=== PATIENT | female | born 1955 | race Caucasian/White ===

== ENCOUNTER 2023-01-19 12:11 | Emergency (ER) | payer MEDICARE, OTHER ==
[~2023-01-19] VITALS: Ht 167.6 cm; Wt 56.8 kg
[~2023-01-19 12:11] MED LIST: ALEVE220 M2 PO; ANASTROZOLE1 MG PO; LOSARTAN POTASS50 MG PO; NAPROSYN500 MG PO; NO HOME MEDS; PERCOCET 10/31 COMBO PO
[2023-01-19] MEDS ORDERED: EQ PAIN RELIEV325 MG PO (12:16)
[2023-01-19 12:38] VITALS: BP 182/90
[2023-01-19 12:46] VITALS: BP 174/90
[2023-01-19 13:13] LABS: BASO% 0.8 % (0-3); EOS% 0.5 % (0-8); HEMATOCRIT 39.6 % (37.0-47.0); IMMATURE GRANULOCYTES 0.2 % (0.0-5.0); LYMPH% 24.2 % (15-41); MEAN CELL VOLUME 98.3 fL CALC (80.0-100.0); MEAN CORPUSCULAR HGB 32.3 pG CALC (26.0-32.0); MEAN CORPUSCULAR HGB CONC 32.8 g/dL CAL (32.0-36.0); MONO% 13.2 % (2-13); NEUT# 3.69 thou/uL (2.00-7.15); NEUT% 61.1 % (42-76); RED BLOOD COUNT 4.03 mill/uL (4.20-5.60); RED CELL DISTRI WIDTH 12.5 % (11.5-15.5)
[2023-01-19 13:24] LABS: ALBUMIN 4.7 g/dL (3.2-5.0); ALKALINE PHOSPHATASE 50 u/l (38-126); ANION GAP 13 (6-22 (CALC)); BUN 10 mg/dL (8-23); BUN/CREATININE RATIO 15 (12-20 (CALC)); CARBON DIOXIDE 27 mmol/l (22-30); CHLORIDE 97 mmol/l (95-108); CREATININE 0.6 mg/dL (0.5-1.0); GFR FOR AFR.AMER. > 60 ML/MIN (>=60 (CALC)); GFR OTHER RACES > 60 ML/MIN (>=60 (CALC)); POTASSIUM 4.6 mmol/l (3.5-5.1); SGOT/AST 35 u/l (9-36); SODIUM 132 mmol/l (137-146)
[2023-01-19 13:55] LABS: TSH, 3RD GENERATION 0.51 uIU/mL (0.47 - 4.68)
[2023-01-19 15:11] VITALS: BP 174/90
== END 2023-01-19 15:17 | disposition home or self-care (01) ==
LOC: ED 12:11
PROVIDERS: Family Medicine
DX: I10 Essential (primary) hypertension (principal); F17.290 Nicotine dependence, other tobacco product, uncomplicated

== ENCOUNTER 2023-02-26 07:20 | Day surgery (SDC) | payer MEDICARE, OTHER ==
[~2023-02-26] VITALS: Ht 167.6 cm; Wt 58.1 kg
[~2023-02-26 07:20] MED LIST changes: +EQ PAIN RELIEV325 MG PO
[2023-02-26 09:40] VITALS: BP 154/71
== END 2023-02-26 09:22 | disposition home or self-care (01) ==
LOC: ENDO 07:20
PROVIDERS: ATTEND Internal Medicine Gastroenterology
PROC: 0DBK8ZX Excision of Ascending Colon, Via Natural or Artificial Opening Endoscopic, Diagnostic (ICD-10-PCS; principal; 2023-02-26)
DX: Z12.11 Encounter for screening for malignant neoplasm of colon (principal); D12.2 Benign neoplasm of ascending colon; K57.30 Diverticulosis of large intestine without perforation or abscess without bleeding; K64.8 Other hemorrhoids